=== PATIENT | male | born 1990 | race Caucasian/White ===

== ENCOUNTER 2016-06-12 18:21 | Emergency (ER) | payer OTHER ==
[2016-06-12 18:37] VITALS: RESP 16; O2SAT 95
[2016-06-12] MEDS ORDERED: TDAP ADULT 0.5 ML INJ (BOOSTRIX) IM ONE (18:37)
--- NOTE | 2016-06-12 18:45 | EDPHY ---
General Narrative: CHIEF COMPLAINT: thumb laceration HISTORY OF PRESENT ILLNESS: Patient was cutting chicken at work this evening when he accidentally cut the tip of the left thumb. This did not involve the nail bed. Mild to moderately painful. He applied pressure irrigated the wound. No injury elsewhere. Thinks his tetanus is up-to-date is not sure. No numbness or tingling. No weakness. No difficulty flexing the thumb. No other associated complaints or modifying factors. TIME OF INJURY: 5:50 p.m. TETANUS STATUS: Questionable REVIEW OF SYSTEMS: Ten systems reviewed and are negative unless otherwise noted in the HPI EXAMINATION Cardiovascular: Pulses normal throughout. Symmetric radial pulses are 2+. Brisk cap refill Neurological: A&O, sensory symmetric, strength symmetric Skin: Warm and dry, no rash. 1 cm curvilinear laceration at the distal portion of the left thumb. No involvement of the nail and the nail bed. Extremities: Tenderness over the area of laceration left thumb. Full flexion extension of the thumb. Neurovascular intact with brisk cap refill. MDM: 6:45 p.m. Left thumb laceration. No involvement of the nail bed. Fully neuro intact no motor deficits. Have applied a digital block. Will irrigated and closed the wound. 7:00 p.m. Left thumb laceration. Suture repaired without complication. We discussed wound care. Follow up here or with the worker's comp clinic in 7-10 days for suture removal. PROCEDURE: Digital Block Indication:Finger laceration Consent: Verbal Location: Left thumb Anesthesia: Lidocaine 1% plain Description: Skin was prepped with chlorhexidine. 5 mL 1% lidocaine plain injected on volar aspect of the base of the thumb. Good anesthesia was obtained. Complications: None PROCEDURE: Laceration repair Consent: Verbal Location: Left thumb, distal Length of repair: 1 cm curvilinear Complexity: Simple Layer involvement: Single Anesthesia: digital block Irrigation: Extensive Debridement: none Procedure description: Following good anesthesia, the wound was copiously irrigated. Wound bed was explored and there is no foreign body noted. Wound borders were approximated well with good hemostasis. Tolerated well without complication. Suture/Staple material: 5-0 Prolene, 3 simple interrupted sutures. Wound care: Routine as discussed Suture/Staple removal: 7-10 Days SUTURE STAPLE REMOVAL: 7-10 days ED Precautions: Worsening pain. Erythema, edema, cyanosis, pallor, paresthesia or anesthesia. SUPERVISION: This patient was independently evaluated without direct examination by the attending physician. Case was discussed with attending physician. - Objective Allergies/Adverse Reactions: No Known Allergies Allergy (Unverified 06/12/16 18:36) Home Medications: Medication Instructions Recorded Amoxicillin/Clavulanate Pot 875 mg PO BID #14 tab 06/12/16 [Augmentin 875 MG TAB (*)] Departure - Departure Disposition: Home, Routine, Self-Care Clinical Impression: Laceration of thumb Qualifiers: Encounter type: initial encounter Laterality: left Qualified Code(s): S61.012A - Laceration without foreign body of left thumb without damage to nail, initial encounter Condition: Good Instructions: Laceration (ED), Care For Your Stitches (ED) Additional Instructions: Wound care as discussed. Antibiotics twice daily for 7 days. Follow up here or with her worker's comp clinic in 7-10 days for suture removal Referrals: NONE *PRIMARY CARE P,. [Primary Care Provider] - As per Instructions Physician,Emergency Dept [Medical Doctor] - As per Instructions Prescriptions: Amoxicillin/Clavulanate Pot [Augmentin 875 MG TAB (*)] 875 mg PO BID #14 tab
[2016-06-12] MEDS ORDERED: AMOXICILLIN/CLAVULANATE POT 875/125 MG TAB PO ONE (19:02)
[2016-06-12 19:28] VITALS: BP 138/59; PULSE 64; TEMP 97.9
== END 2016-06-12 19:28 | disposition home or self-care (01) ==
PROC: 0HQGXZZ Repair Left Hand Skin, External Approach (ICD-10-PCS; principal; 2016-06-12)
DX: S61.012A Laceration without foreign body of left thumb without damage to nail, initial encounter (principal); Z23 Encounter for immunization; W26.9XXA Contact with unspecified sharp object(s), initial encounter; Y92.69 Other specified industrial and construction area as the place of occurrence of the external cause; Y99.0 Civilian activity done for income or pay; Y93.89 Activity, other specified